=== PATIENT | male | born 1995 | race African-American/Black ===

== ENCOUNTER 2019-09-02 12:15 | Emergency (ER) | payer MEDICAID ==
[~2019-09-02] VITALS: Ht 172.7 cm; Wt 73.0 kg
[2019-09-02] MEDS ORDERED: ACETAMINOPHEN 325MG TABLET PO STA (15:18)
[2019-09-02] MEDS ORDERED: KETOROLAC 30MG/ML VIAL IV STA (15:18)
[2019-09-02] MEDS ORDERED: SODIUM CHLORIDE 0.9% 1,000 ML IV ONE (15:18)
[2019-09-02 15:42] LABS: BASOPHILS % 0.5 % (0.0-2.0); EOSINOPHILS % 1.3 % (0.0-5.0); HEMATOCRIT. 47.4 % (42.0-52.0); HEMOGLOBIN. 16.3 g/dL (14.0-18.0); LYMPHOCYTES % 16.5 % (20.0-50.0); MEAN CORPUSCULAR HEMOGLOBIN 30.8 pg (28.0-32.0); MEAN CORPUSCULAR VOLUME 89.8 fL (80.0-94.0); MEAN PLATELET VOLUME 8.3 fl (7.4-10.4); MONOCYTES % 13.8 % (2.0-8.0); NEUTROPHILS % 67.9 % (40.0-76.0); PLATELET 212 x1000/uL (130-400); RED BLOOD CELL COUNT 5.27 mill/uL (4.7-6.1); RED CELL DISTRIBUTION WIDTH 13.4 % (11.6-14.6)
[2019-09-02 15:47] LABS: CHLORIDE 101 mEq/L (98-107)
[2019-09-02 16:23] VITALS: BP 118/80
== END 2019-09-02 16:23 | disposition home or self-care (01) ==
LOC: ER 12:15
DX: B34.9 Viral infection, unspecified (principal)
CPT/HCPCS: 36415; 71045; 80053; 85025; 96374; 99284; J1885; J7030